=== PATIENT | female | born 1945 | race Caucasian/White ===

== ENCOUNTER → 2018-04-04 | Outpatient (CLI) | payer MEDICARE | LOC: CARD 10:45 | PROVIDERS: ATTEND Internal Medicine | DX: I48.0 Paroxysmal atrial fibrillation (principal); R00.2 Palpitations | CPT/HCPCS: 93225; 93226 ==

== ENCOUNTER → 2018-04-24 | Outpatient (CLI) | payer MEDICARE | LOC: CARD 10:43 | PROVIDERS: ATTEND Internal Medicine | DX: I48.91 Unspecified atrial fibrillation (principal); I10 Essential (primary) hypertension | CPT/HCPCS: 93306 ==

== ENCOUNTER → 2018-05-06 | Outpatient (CLI) | payer MEDICARE ==
[~2018-05-06] MED LIST: CATHETER FLUSH 10 ML SYR IV PRN; REGADENOSON 0.4 MG/5 ML SYR (LEXISCAN) IV ONE
[2018-05-06 07:54] VITALS: BP 116/90
--- NOTE | 2018-05-06 20:48 | STRESS TEST ---
DATE OF SERVICE: 05/06/2018 NUCLEAR MYOVIEW REPORT SUMMARY: The patient was injected with 10.45 mCi of technetium-99 Myoview and the resting images were obtained. Then, the patient received a peak stress dose of 30.8 mCi of technetium-99 Myoview. The resting and stress images were reviewed and compared in the short axis, horizontal long axis, and vertical long axis views. Review of the images showed breast attenuation with mild decreased uptake at the mid to apical anterolateral and inferolateral wall with mild reversibility. SSS is 5, SDS 4, TID value 1.07. On the gated images, the left ventricle appeared to be in normal size with mild decreased contractility. Calculated ejection fraction 52%. CONCLUSION: 1. The patient had breast attenuation with mild ischemia involving the mid to apical anterolateral and inferolateral wall. 2. Normal left ventricular size with systolic function is in the lower normal limit. Calculated ejection fraction 52%. Job ID: [id number] DocumentID: [id number] Dictated Date: 05/06/2018 16:08:24 Refinery Operator Date: 05/06/2018 20:47:58 Dictated By: SAM GUZMAN MD
== END ==
LOC: CARD 06:38
PROVIDERS: ATTEND Internal Medicine
DX: I48.91 Unspecified atrial fibrillation (principal); I10 Essential (primary) hypertension
CPT/HCPCS: 78452; 93017